=== PATIENT | male | born 1965 | race Caucasian/White ===

== ENCOUNTER 2017-11-05 17:56 | Emergency (ER) | payer OTHER, MEDICAID, MEDICARE, SELFPAY ==
[2017-11-05] MEDS: IBUPROFEN 800 MG TAB PO (19:32)
== END 2017-11-05 20:40 | disposition home or self-care (01) ==
LOC: M ED 17:56
DX: S43.52XA Sprain of left acromioclavicular joint, initial encounter (principal); V49.9XXA Car occupant (driver) (passenger) injured in unspecified traffic accident, initial encounter; Y92.9 Unspecified place or not applicable; Y93.9 Activity, unspecified; Z79.82 Long term (current) use of aspirin
CPT/HCPCS: 73030